=== PATIENT | female | born 1985 | race African-American/Black ===

== ENCOUNTER 2017-10-14 13:02 | Outpatient (CLI) | payer OTHER | END 2017-10-14 16:30 | disposition home or self-care (01) | LOC: OBT 13:02 → L-D 13:04 → OBT 16:30 | DX: O40.3XX0 Polyhydramnios, third trimester, not applicable or unspecified (principal); Z3A.36 36 weeks gestation of pregnancy | CPT/HCPCS: 76818 ==

== ENCOUNTER 2017-10-18 09:31 | Outpatient (CLI) | payer OTHER | END 2017-10-18 10:45 | disposition home or self-care (01) | LOC: OBT 09:31 → L-D 09:31 → OBT 10:45 | DX: O40.3XX0 Polyhydramnios, third trimester, not applicable or unspecified (principal); Z3A.36 36 weeks gestation of pregnancy | CPT/HCPCS: 76818 ==

== ENCOUNTER 2017-10-31 16:49 | Inpatient (IN) | payer OTHER ==
[2017-10-31] MEDS ORDERED: CARBOPROST 250 MCG INJ IM (18:00)
[2017-10-31] MEDS ORDERED: BUTORPHANOL 2 MG INJ IV (18:00)
[2017-10-31] MEDS ORDERED: MISOPROSTOL 200 MCG TAB PR (18:00)
[2017-10-31] MEDS ORDERED: OXYTOCIN 30 UNITS/LR 500 ML IV ×2 (18:00)
[2017-10-31] MEDS ORDERED: LIDOCAINE 1% (MPF) 30 ML INJ INJ (18:00)
[2017-10-31] MEDS: LACTATED RINGER'S 1,000 ML IV ×2 (19:00→20:28)
[2017-10-31 19:11] LABS: ADD MAN DIFF? NO
[2017-10-31 19:13] LABS: BASOPHILS % 0.2 % (0.0-2.0); EOSINOPHILS % 0.2 % (0.0-7.0); HEMATOCRIT 33.8 % (37.0-47.0); HEMOGLOBIN 11.7 g/dl (12.0-16.0); LYMPHOCYTES # 1.9 10^3/ul (0.8-2.9); LYMPHOCYTES % 19.3 % (15.0-51.0); MEAN CORPUSCULAR HEMOGLOBIN 33.3 pg (29.0-33.0); MEAN CORPUSCULAR HGB CONC 34.6 g/dl (32.0-37.0); MEAN CORPUSCULAR VOLUME 96.3 fl (82.0-101.0); MONOCYTES % 9.6 % (0.0-11.0); NEUTROPHIL # 6.9 10^3/ul (1.6-7.5); NEUTROPHILS % 69.5 % (39.0-77.0); PLATELET COUNT 191 10^3/UL (140-415); RED BLOOD COUNT 3.51 10^6/ul (4.20-5.40); RED CELL DISTRIBUTION WIDTH 13.6 % (11.5-14.5)
[2017-10-31 19:34] LABS: INR 1.01; PROTIME 13.4 Sec (11.9-14.9)
[2017-10-31 19:35] LABS: PARTIAL THROMBOPLASTIN TIME 26.9 Sec (25.0-35.0)
[2017-10-31] MEDS ORDERED: FENTAnyl 2MCG/ML-ROPIV 0.2% 100 ML (21:03)
[2017-11-01] MEDS: FENTAnyl 2MCG/ML-ROPIV 0.2% 100 ML BAG EPI ×3 (03:49→14:56)
[2017-11-01] MEDS: LACTATED RINGER'S 1,000 ML IV ×2 (03:50→16:15)
[2017-11-01] MEDS ORDERED: NALOXONE (0.4 MG/ML) INJ IV (04:00)
[2017-11-01] MEDS ORDERED: ONDANSETRON 4 MG INJ (07:37)
[2017-11-01] MEDS: ONDANSETRON 4 MG INJ IV (07:46)
[2017-11-01] MEDS: OXYTOCIN 30 UNITS/LR 500 ML IV ×2 (09:11→21:08)
[2017-11-01] MEDS: DEXTROSE 5%-LR 1,000 ML IV ×2 (10:19→22:20)
[2017-11-01] MEDS: AMPICILLIN 2 GM/NS (PMX) 100 ML IV (12:19)
[2017-11-01] MEDS: AMPICILLIN 1 GM/NS (PMX) 50 ML IVPB ×2 (16:51→20:53)
[2017-11-01] MEDS ORDERED: OXYTOCIN 30 UNITS/LR 500 ML IV (20:00)
[2017-11-01] MEDS ORDERED: CEFAZOLIN 2 GM/50 ML (PMX) 50 ML IV (20:00)
[2017-11-01] MEDS: METHYLERGONOVINE 0.2 MG INJ IM (20:22)
[2017-11-01] MEDS: IBUPROFEN 600 MG TAB PO (20:53)
[2017-11-01 21:58] LABS: RAPID PLASMA REAGIN NONREACTIVE (NR)
[2017-11-01] MEDS: LACTATED RINGER'S 1,000 ML IV* (22:20)
[2017-11-01] MEDS ORDERED: CARBOPROST 250 MCG INJ IM (22:30)
[2017-11-01] MEDS ORDERED: OXYCODONE/ASPIRIN (4.88/325) TAB PO (22:30)
[2017-11-01] MEDS ORDERED: LANOLIN 7 GM TUBE TOP (22:30)
[2017-11-01] MEDS ORDERED: DIPHENHYDRAMINE 50 MG INJ IV (22:30)
[2017-11-01] MEDS ORDERED: MISOPROSTOL 200 MCG TAB PR (22:30)
[2017-11-01] MEDS ORDERED: METHYLERGONOVINE 0.2 MG INJ IM (22:30)
[2017-11-01] MEDS ORDERED: DIBUCAINE 1% 30 GM OINT PR (22:30)
[2017-11-01] MEDS ORDERED: ACETAMINOPHEN 325 MG TAB PO (22:30)
[2017-11-01] MEDS ORDERED: ZOLPIDEM 5 MG TAB PO (22:30)
[2017-11-01] MEDS ORDERED: ONDANSETRON 4 MG INJ IV (22:30)
[2017-11-02] MEDS: BENZOCAINE 20% 56 ML SPRAY TOP (01:33)
[2017-11-02] MEDS: WITCH HAZEL/GLYCERIN PAD PR (01:33)
[2017-11-02] MEDS: OXYTOCIN 30 UNITS/LR 500 ML IV (01:34)
[2017-11-02] MEDS: IBUPROFEN 600 MG TAB PO ×5 (05:47→22:49)
[2017-11-02] MEDS: LACTATED RINGER'S 1,000 ML IV* ×3 (05:48→22:20)
[2017-11-02] MEDS: DEXTROSE 5%-LR 1,000 ML IV ×3 (05:48→22:20)
[2017-11-02] MEDS: PRENATAL VITAMIN PO (08:41)
[2017-11-02] MEDS: FERROUS SULFATE (EC) 325 MG TAB PO (08:41)
[2017-11-02 09:01] LABS: ADD MAN DIFF? NO
[2017-11-02 09:06] LABS: ABNORMAL IP MESSAGE 1; BASOPHILS % 0.1 % (0.0-2.0); HEMATOCRIT 31.6 % (37.0-47.0); HEMOGLOBIN 10.5 g/dl (12.0-16.0); LYMPHOCYTES # 1.5 10^3/ul (0.8-2.9); MEAN CORPUSCULAR HEMOGLOBIN 33.1 pg (29.0-33.0); MEAN CORPUSCULAR HGB CONC 33.2 g/dl (32.0-37.0); MEAN CORPUSCULAR VOLUME 99.7 fl (82.0-101.0); MEAN PLATELET VOLUME 10.1 fl (7.4-10.4); MONOCYTE # 2.1 10^3/ul (0.3-0.9); MONOCYTES % 11.5 % (0.0-11.0); NEUTROPHIL # 14.6 10^3/ul (1.6-7.5); NEUTROPHILS % 79.7 % (39.0-77.0); PLATELET COUNT 181 10^3/UL (140-415); RED BLOOD COUNT 3.17 10^6/ul (4.20-5.40); RED CELL DISTRIBUTION WIDTH 13.8 % (11.5-14.5)
[2017-11-02 09:06] LABS: WHITE BLOOD COUNT 18.3 10^3/ul (4.8-10.8)
[2017-11-02] MEDS: SENNA/DOCUSATE NA (8.6MG/50MG) TAB PO (09:16)
[2017-11-02] MEDS: CALCIUM CARBONATE 1.25 GM TAB PO (14:55)
[2017-11-03] MEDS: IBUPROFEN 600 MG TAB PO ×3 (05:37→19:39)
[2017-11-03] MEDS: LACTATED RINGER'S 1,000 ML IV* (06:20)
[2017-11-03] MEDS: DEXTROSE 5%-LR 1,000 ML IV (06:20)
[2017-11-03 08:21] LABS: ADD MAN DIFF? NO
[2017-11-03 08:23] LABS: BASOPHILS % 0.2 % (0.0-2.0); EOSINOPHILS # 0.1 10^3/ul (0.0-0.5); EOSINOPHILS % 0.5 % (0.0-7.0); HEMATOCRIT 30.4 % (37.0-47.0); HEMOGLOBIN 10.2 g/dl (12.0-16.0); LYMPHOCYTES # 1.8 10^3/ul (0.8-2.9); LYMPHOCYTES % 12.5 % (15.0-51.0); MEAN CORPUSCULAR HEMOGLOBIN 33.4 pg (29.0-33.0); MEAN CORPUSCULAR HGB CONC 33.6 g/dl (32.0-37.0); MEAN CORPUSCULAR VOLUME 99.7 fl (82.0-101.0); MEAN PLATELET VOLUME 9.8 fl (7.4-10.4); MONOCYTE # 1.2 10^3/ul (0.3-0.9); MONOCYTES % 7.9 % (0.0-11.0); NEUTROPHIL # 11.4 10^3/ul (1.6-7.5); NEUTROPHILS % 77.2 % (39.0-77.0); PLATELET COUNT 178 10^3/UL (140-415); RED BLOOD COUNT 3.05 10^6/ul (4.20-5.40); RED CELL DISTRIBUTION WIDTH 13.8 % (11.5-14.5)
[2017-11-03 08:23] LABS: WHITE BLOOD COUNT 14.7 10^3/ul (4.8-10.8)
[2017-11-03] MEDS: SENNA/DOCUSATE NA (8.6MG/50MG) TAB PO (08:23)
[2017-11-03] MEDS: CALCIUM CARBONATE 1.25 GM TAB PO (08:23)
[2017-11-03] MEDS: PRENATAL VITAMIN PO (08:23)
[2017-11-03] MEDS: FERROUS SULFATE (EC) 325 MG TAB PO (08:23)
[2017-11-03] MEDS: MEASLES,MUMPS,RUBELLA VACCINE INJ SC* (09:00)
[2017-11-03] MEDS: DIPHTH/TET/ACEL PERTUSS (ADULT) 0.5 ML VIAL IM* (14:42)
[2017-11-03] MEDS: BENZOCAINE 20% 56 ML SPRAY TOP (19:52)
[2017-11-03] MEDS: WITCH HAZEL/GLYCERIN PAD PR (19:52)
== END 2017-11-03 21:00 | disposition home or self-care (01) | DRG 775 ==
LOC: OBT 16:49 → PP1 11-01 22:33 → L-D 16:50 → OBT 17:46 → L-D 17:46
PROVIDERS: Obstetrics & Gynecology
PROC: 10E0XZZ Delivery of Products of Conception, External Approach (ICD-10-PCS; principal; 2017-10-31)
PROC: 0W8NXZZ Division of Female Perineum, External Approach (ICD-10-PCS; 2017-10-31)
DX: O80 Encounter for full-term uncomplicated delivery (principal); Z3A.38 38 weeks gestation of pregnancy; Z37.0 Single live birth
CPT/HCPCS: 62319; 76815; 85025; 85610; 85730; 86592; 86850; 86900; 86901; 88307; 90715; 99464